=== PATIENT | female | born 1995 | race Caucasian/White ===

== ENCOUNTER 2017-03-12 13:44 | Emergency (ER) | payer OTHER ==
[2017-03-12 13:52] VITALS: BP 118/60
--- NOTE | 2017-03-12 15:14 | ED ---
Throat Pain/Nasal Congestion - HPI Summary HPI Summary: 21 female presents to ED with complaints of having sinus and nasal congestion for the past week. States she also has a scratchy throat and cough. Having increased mucus production. Has tried tylenol cold and flu with little relief. Denies nausea and abdominal pain. Denies recent fever/chills. No other complaints. No PMHx. - History of Current Complaint Chief Complaint: EDGeneral Time Seen by Provider: 03/12/17 14:35 Hx Obtained From: Patient Onset/Duration: Sudden Onset, Lasting Weeks - 1, Still Present Severity: Moderate Associated Signs And Symptoms: Positive: Dysphagia, Sinus Discomfort Cough: Productive - sometimes - Epiglottits Risk Factors Epiglottis Risk Factors: Negative PMH/Surg Hx/FS Hx/Imm Hx Endocrine/Hematology History: Denies: Hx Diabetes Cardiovascular History: Denies: Hx Hypertension Respiratory History: Denies: Hx Asthma - Surgical History Surgery Procedure, Year, and Place: n/a - Immunization History Immunizations Up to Date: Yes Infectious Disease History: No Infectious Disease History: Denies: Traveled Outside the [place] in Last 30 Days - Family History Known Family History: Positive: None - Social History Alcohol Use: None Substance Use Type: Reports: None Smoking Status (MU): Never Smoked Tobacco Review of Systems Constitutional: Negative Positive: Sore Throat, Ear Ache, Nasal Discharge Cardiovascular: Negative Positive: Cough Gastrointestinal: Negative Skin: Negative Neurological: Negative All Other Systems Reviewed And Are Negative: Yes Physical Exam Triage Information Reviewed: Yes Vital Signs On Initial Exam: Initial Vitals Temp Pulse Resp BP Pulse Ox 97.9 F 74 20 118/60 97 03/12/17 13:50 03/12/17 13:50 03/12/17 13:50 03/12/17 13:50 03/12/17 13:50 Vital Signs Reviewed: Yes Appearance: Positive: Well-Appearing, No Pain Distress, Well-Nourished Skin: Positive: Warm, Skin Color Reflects Adequate Perfusion, Dry. Negative: Cold, Cyanosis @, Pale, Erythema @ Head/Face: Positive: Normal Head/Face Inspection Eyes: Positive: EOMI, GILMAR, Conjunctiva Clear ENT: Positive: Normal ENT inspection, Hearing grossly normal, Pharyngeal erythema, Nasal congestion, Nasal drainage, TMs normal, Other - patent airway. Negative: TM bulging, TM dull, TM red, Tonsillar swelling, Tonsillar exudate, Trismus, Muffled/hoarse voice Dental: Negative: Percussion Tenderness @, Cervical Lymphadenopathy Neck: Positive: Supple, Nontender, No Lymphadenopathy Respiratory/Lung Sounds: Positive: Clear to Auscultation, Breath Sounds Present. Negative: Decreased Breath Sounds, Rales, Rhonchi, Wheezes Cardiovascular: Positive: Normal, RRR, Pulses are Symmetrical in both Upper and Lower Extremities. Negative: Murmur, Rub Abdomen Description: Positive: Nontender, No Organomegaly, Soft Bowel Sounds: Positive: Present Musculoskeletal: Positive: Normal, Strength/ROM Intact Neurological: Positive: Normal, Sensory/Motor Intact, Alert, Oriented to Person Place, Time, NV Bundle Intact Distally, Normal Gait Diagnostics - Vital Signs Vital Signs Temp Pulse Resp BP Pulse Ox 03/12/17 13:50 97.9 F 74 20 118/60 97 - Laboratory Lab Statement: Any lab studies that have been ordered have been reviewed, and results considered in the medical decision making process. EENT Course/Dx - Course Course Of Treatment: appears to be suffering from allergies versus URI. will treat symptomatically. normal vitals. no concern for any other emergent etiology at this time. no signs of mono or strep. no fever, hypoxia or lymphadenopathy. Flonase, hot showers, mucinex, zyrtec. Follow up with PCP if symptoms worsen or do not improve within 1 week. New symptoms seek medical attention. Patient agrees and understands plan. Does not appear to need antibiotics as no sign of specific bacterial infection at this time. - Differential Diagnoses Differential Diagnoses: Otitis Media, Pharyngitis, Sinusitis, Tonsilitis, URI/ Bronchitis, Other - rhinosinusitis - Diagnoses Provider Diagnoses: Acute rhinosinusitis, Upper respiratory infection Discharge - Discharge Plan Condition: Stable Disposition: HOME Prescriptions: Cetirizine* [ZyrTEC 10 MG TAB*] 10 mg PO DAILY #10 tab Fluticasone NASAL SPRAY 50MCG* [Flonase NASAL SPRAY 50MCG*] 2 spray BOTH NARES DAILY #1 btl Patient Education Materials: Upper Respiratory Infection (ED) [facility] - Additional Instructions: Recommend trying saline spray/rinses over the counter. Take Mucinex for the next 7 days. Take prescribed medication as directed. Fluids, rest, hot showers. Ibuprofen for discomfort and headache. Follow up with PCP. Any new or worsening symptoms or if symptoms do not improve in 7 days please seek medical attention.
== END 2017-03-12 15:21 | disposition home or self-care (01) ==
LOC: ED 13:44
DX: J01.90 Acute sinusitis, unspecified (principal); J06.9 Acute upper respiratory infection, unspecified
CPT/HCPCS: 99281